=== PATIENT | female | born 1970 | race African-American/Black ===

== ENCOUNTER 2020-04-17 06:25 | Emergency (ER) | payer BC ==
[~2020-04-17] VITALS: Ht 182.9 cm; Wt 99.8 kg
--- NOTE | 2020-04-17 07:08 | NUR ---
DR Ohara at the bedside for MSE.
[2020-04-17] MEDS ORDERED: KETOROLAC TROMETHAMINE 15 MG INJ IVP STA (07:10)
[2020-04-17 07:17] LABS: BASOPHILS # (AUTO) 0.1 K/uL (0.0-8.0); BASOPHILS % (AUTO) 1.1 % (0.0-2.0); EOSINOPHILS # (AUTO) 0.1 K/uL (0.0-0.7); EOSINOPHILS % (AUTO) 1.7 % (0.0-7.0); HEMATOCRIT 37.1 % (31.2-41.9); HEMOGLOBIN 11.6 g/dL (10.9-14.3); LYMPHOCYTES # (AUTO) 1.7 K/uL (20.0-40.0); LYMPHOCYTES % (AUTO) 33.6 % (20.5-51.5); MEAN CORPUSCULAR HEMOGLOBIN 23.9 uug (24.7-32.8); MEAN CORPUSCULAR HGB CONC 31 g/dL (32.3-35.6); MEAN CORPUSCULAR VOLUME 76.4 fL (75.5-95.3); MONOCYTES # (AUTO) 0.4 K/uL (2.0-10.0); MONOCYTES % (AUTO) 8.7 % (0.0-11.0); NEUTROPHILS # (AUTO) 2.7 K/uL (1.8-8.9); NEUTROPHILS % (AUTO) 54.9 % (38.5-71.5); PLATELET COUNT (AUTO) 218 K/uL (179-408); RED BLOOD CELL COUNT(AUTO) 4.85 MIL/uL (3.63-4.92)
[2020-04-17 07:21] LABS: CARBON DIOXIDE 24 mmol/L (21-32); CHLORIDE 103 mmol/L (98-107); GLUCOSE 92 mg/dL (74-106); POTASSIUM 4.2 mmol/L (3.5-5.1); UREA NITROGEN, BLOOD 14 mg/dL (7-18)
[2020-04-17] MEDS ORDERED: KETOROLAC TROMETHAMINE 30 MG INJ ONE (07:25)
[2020-04-17 07:33] LABS: ALANINE AMINOTRANSFERASE 19 U/L (14-59); ALKALINE PHOSPHATASE 58 U/L (50-136); ASPARTATE AMINOTRANSFERASE 16 U/L (15-37); BILIRUBIN,DIRECT < 0.1 mg/dL (0.0-0.2); BILIRUBIN,TOTAL 0.2 mg/dL (0.2-1.0); TOTAL PROTEIN, SERUM 7.5 g/dL (6.4-8.2)
--- NOTE | 2020-04-17 08:13 | NUR ---
Pt signed consent for CTA.Placed in the chart.
[2020-04-17] MEDS ORDERED: IOHEXOL 350 100 ML INFUS..BTL ONE (08:45)
[2020-04-17] MEDS ORDERED: IV NORMAL SALINE 250 ML IV ONE (08:45)
[2020-04-17] MEDS ORDERED: SWABABLE VALVE TRANSFER SET EA MC ONE (08:45)
[2020-04-17 09:07] LABS: *URINE HCG, QUAL NEG (NEGATIVE)
--- NOTE | 2020-04-17 09:39 | NUR ---
PT back from CT, denies chest pain/SOB.
--- NOTE | 2020-04-17 10:02 | NUR ---
Patient is resting comfortably in bed with eyes closed, NAD noted.
[2020-04-17] MEDS ORDERED: IBUP-1957 PO (10:19)
[2020-04-17] MEDS ORDERED: OMEP20CA15 PO (10:19)
[2020-04-17 10:27] VITALS: BP 133/85
--- NOTE | 2020-04-17 10:28 | NUR ---
IV removed. Catheter intact and site benign. Pressure and 4x4 gauze applied to site. No bleeding noted.
--- NOTE | 2020-04-17 10:29 | NUR ---
Patient discharged to home in stable condition. Written and verbal after care instructions given. Patient verbalizes understanding of instructions. Stressed follow up or return to ER for worsening s/s. Pt left ER w/ steady gait.
== END 2020-04-17 10:29 | disposition home or self-care (01) ==
LOC: ER 06:32
DX: R07.89 Other chest pain (principal); K44.9 Diaphragmatic hernia without obstruction or gangrene; Z79.899 Other long term (current) drug therapy; R00.1 Bradycardia, unspecified
CPT/HCPCS: 36415; 71046; 71275; 80048; 80076; 83690; 84484; 84703; 85025; 85379; 93005 ×2; 96374; 99291; J1885; Q9967; 70030-TC; A4663; J7050